=== PATIENT | male | born 1975 | race Caucasian/White ===

== ENCOUNTER 2024-02-28 23:31 | Emergency (ER) | payer OTHER, SELFPAY ==
[2024-02-28 23:31] VITALS: BMI 40.1
[2024-02-28 23:39] VITALS: BP 144/79; PULSE 106; RESP 20; TEMP 38.6; O2SAT 95
--- NOTE | 2024-02-28 23:43 | XR_ITS ---
Examination: CT abdomen with intravenous contrast CT pelvis with intravenous contrast 2-D coronal reconstructions 2-D sagittal reconstructions Date and time of exam:February 29, 2024 0131 hrs. Indications: Right upper abdominal pain nausea and chills fever beginning 5 days ago. CTDI: vol (mGy) 18.9 DLP: (mGycm) 1327 Technique: Multiple axial sections of the abdomen and pelvis have been obtained. 64 slice high-resolution scanner used. 3 mm axial sections have been obtained, post intravenous injection 60 cc [id number] 2-D sagittal, coronal reconstructions obtained. Low dose protocols were performed. One or more of the following dose reduction techniques were used; automated exposure control, adjustment of the mA and/or KV according to patient size, use of iterative reconstruction technique. Findings: Edema and/or pneumonia at the lung bases Liver calcifications Gallbladder wall appears mildly thickened Splenic calcifications No pancreatic or adrenal mass Mild bilateral renal parenchymal scar formation Aorta normal size Normal appendix No bowel obstruction No diverticulitis Marked thickening of the urinary bladder wall Cellulitis pattern in the anterior pelvic wall axial image 221 Impression: Pulmonary edema and/or pneumonia at the lung bases, recommend PA lateral chest follow-up Recommend hepatobiliary sonography follow-up to exclude gallbladder wall thickening Mild bilateral renal parenchymal scar formation Marked thickening of the urinary bladder wall, differential would include cystitis Cellulitis pattern, mild in the anterior pelvic wall
--- NOTE | 2024-02-28 23:44 | EDRME_ITS ---
Rapid Medical Screening Exam [facility] Arrival date/time: 02/28/24 23:31 48M with history of gastric bypass surgery presents to ED with 5 days of worsening RUQ/flank pain and N/V. Patient denies dysuria/hematuria and URI symptoms. Chief Complaint: Abdominal Pain Vital signs: Vital Signs Temperature 101.4 F H 02/28/24 23:39 Pulse Rate 106 H 02/28/24 23:39 Respiratory Rate 20 02/28/24 23:39 Blood Pressure 144/79 H 02/28/24 23:39 Pulse Oximetry (%) 95 02/28/24 23:39 Oxygen Delivery Method Room Air 02/28/24 23:39
--- NOTE | 2024-02-29 | XR_ITS ---
Examination: Abdomen sonogram, Limited Date and time of exam: February 29, 2024 1221 hours INDICATIONS: Right upper abdominal pain with fever beginning 10 days ago Technique: Real-time ortega scale transabdominal sonographic images of the upper abdomen obtained. Findings: Small gallstones Gallbladder wall 0.4 cm Common bile duct 0.3 cm Pancreatic head 3.0 cm Liver 16.9 cm fatty infiltration no focal liver lesions Normal hepatopedal portal venous flow Patent IVC IMPRESSION: Cholelithiasis, mild gallbladder wall thickening, consider HIDA scan follow-up or MRCP as clinically warranted
[2024-02-29 00:17] LABS: Lactate (Lactic Acid) 1.4 mMol/L (0.4-2.0)
[2024-02-29 00:23] LABS: Collection Type, Urine Clean Catch; Squamous Epithelial Cell,Urine 0 /hpf (0-5)
[2024-02-29 00:29] VITALS: TEMP 38.6
[2024-02-29] MEDS: SODIUM CHLORIDE 0.9% 1000 ML 1,000 ML 999 ML IV (00:29)
[2024-02-29] MEDS: ACETAMINOPHEN 500 MG TABLET 1000 MG PO (00:29)
[2024-02-29] MEDS: ONDANSETRON ODT 4 MG TABRAP PO (00:30)
[2024-02-29 00:34] LABS: Bilirubin,Urine Negative (Negative); Blood,Urine Negative (Negative); Clarity,Urine Clear (Clear/Hazy); Color,Urine Yellow (Lt Yel-Yel); Culture Indicated,Urine Not Indicated; Glucose, Urine Negative (Negative); Ketones,Urine Trace (Negative); Leukocyte Esterase,Urine Negative (Negative); Nitrite,Urine Negative (Negative); PH,Urine 5.5 (5.0-7.0); Protein,Urine Trace (Neg - Trace); RBC,Urine 3 /hpf (0-3); Specific Gravity,Urine 1.034 (1.001-1.035); WBC,Urine < 1 /hpf (0-5)
[2024-02-29 00:47] LABS: Alanine Aminotransferase 22 U/L (10-49); Albumin, Serum 4.6 gm/dL (3.5-5.0); Albumin/Globulin Ratio 1.8 (1.2-2.2); Alkaline Phosphatase 96 U/L (46-116); Anion Gap 7 (7-16); Aspartate Amino Transferase 24 U/L (0-34); BUN/Creatinine Ratio 22 Ratio (12-20); Basophils # (Auto) 0.2 Thou/mm3 (0.0-0.2); Basophils % (Auto) 1 % (0-2.5); Bilirubin,Total 0.5 mg/dL (0.3-1.2); Blood Urea Nitrogen 22 mg/dL (9-23); Calcium 9.5 mg/dL (8.3-10.6); Calcium (Corrected) 9.5 mg/dL (8.5-10.1); Carbon Dioxide 24.5 mMol/L (20.0-31.0); Chloride 107 mMol/L (98-107); Eosinophils # (Auto) 0.8 Thou/mm3 (0.0-0.5); Eosinophils % (Auto) 5 % (0-10); Estimated Creatinine Clearance 119.6 mL/min (>60); Globulin 2.5 gm/dL (2.3-3.5); Glucose 107 mg/dL (74-106); Hematocrit 39.9 % (41.0-53.0); Hemoglobin 13.4 g/dL (13.5-16.0); Immature Granulocytes % (Auto) 0 % (0-0); Immature Granulocytes Auto 0.05 Thou/mm3 (0.00-0.00); Lipase 43 U/L (12-53); Lymphocytes # (Auto) 1.6 Thou/mm3 (1.0-4.8); Lymphocytes % (Auto) 11 % (10-50); Mean Corpuscular HGB Conc 33.6 g/dl (31.0-37.0); Mean Corpuscular Hemoglobin 28.9 pg (25.0-35.0); Mean Corpuscular Volume 86 fL (80-100); Monocytes # (Auto) 1.4 Thou/mm3 (0.0-0.8); Monocytes % (Auto) 9 % (0-12); Neutrophils # (Auto) 10.8 Thou/mm3 (1.8-7.7); Neutrophils % (Auto) 73 % (37-80); Nucleated Red Blood Cell % 0 /100 WBC (0); Osmolality,Calculated 278 (275-295); Platelet Count 270 Thou/mm3 (140-440); Potassium 3.9 mMol/L (3.4-5.1); Procalcitonin 0.09 ng/ml (0.0-0.49); RDW Standard Deviation 42.8 fL (35.1-43.9); Red Blood Count 4.64 Miln/mm3 (4.50-5.90); Sodium 138 mMol/L (136-145); Total Protein 7.1 gm/dL (5.7-8.2); White Blood Count 14.8 Thou/mm3 (3.8-10.6); eGFR > 60 See Note
[2024-02-29 01:21] VITALS: BP 116/82; PULSE 88; RESP 18; TEMP 37.8; O2SAT 96
--- NOTE | 2024-02-29 02:14 | PRELIM_ITS ---
Right upper quadrant abdominal ultrasound with Limited Doppler. February 29, 2024 at 0021 hours Clini hue history: RUQ pain off and on with fever x10 days. History of gastric bypass surgery in 2015. No p rior study is available for comparison. Findings:The evaluation is limited due to overlying bowel gas and breathing during the study. The liver is enlarged, measuring 16.9 cm and demonstrates increase i n echogenicity. No intrahepatic biliary ductal dilatation. The main portal vein is patent and demonst rates hepatopetal flow. Hepatic veins are patent. Multiple small calculi are noted within the gallbl adder with gallbladder wall thickening, measuring 3.8 mm. No evidence of pericholecystic fluid. Sonog raphic Rizo sign is negative. Please correlate with any pain medication. The common bile duct is no rmal in caliber at 3-4 mm. The pancreas is not visualized, due to obscured by bowel gas. The abdomin al aorta and inferior vena cava are unremarkable to the extent visualized. Impression:Limited evalua tion as described. Cholelithiasis with mild gallbladder wall thickening, in the appropriate clinical setting, the possibility of acute cholecystitis cannot be excluded. Suggest follow-up with HIDA scan, if clinically indicated. Hepatomegaly with fatty infiltration of the liver. Report Electronically Si gned By: Amilcar Davila 02/29/2024 2:13:35 AM [EST]
[2024-02-29 02:20] VITALS: TEMP 37.3
[2024-02-29 02:20] LABS: Amphetamine/Methamp Scrn,U Negative (Negative); Barbiturate Screen,Urine Negative (Negative); Benzodiazepines Screen,Urine Negative (Negative); Benzoylecgonine Screen, Ur Negative (Negative); Fentanyl Screen,Urine Negative (Negative); Opiate Screen,Urine Negative (Negative); THC Screen,Urine Negative (Negative)
--- NOTE | 2024-02-29 03:27 | PRELIM_ITS ---
CT scan of the abdomen and pelvis with intravenous contrast (axial sections with sagittal and coronal reformats): February 29, 2024 at 0131 hoursClinical History: Right upper quadrant/flank pain.Correla donald with the prior ultrasound study dated February 29, 2024.Findings:Possible interstitial edema at t he lung bases.Calcific densities are seen in the liver and spleen, likely representing old calcified granulomas. The gallbladder, pancreas, kidneys and adrenals are unremarkable.Fluid filled mildly prom inent proximal small bowel loops. Gastric bypass surgery changes are noted. The appendix is within no rmal limits. The urinary bladder is not well distended with apparent wall thickening. 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 Im pression:Mild ileus.Possible cystitis.Possible interstitial edema at the lung bases.Other findings as described above. Report Electronically Signed By: Amilcar Davila 02/29/2024 3:25:32 AM [EST]
--- NOTE | 2024-02-29 03:53 | PD.EDABDPN ---
ED Abdominal Pain RME/HPI General Chief Complaint: Abdominal Pain Stated complaint: RUQ PAIN, NAUSEA, CHILLS X 5DAYS Arrival date/time: 02/28/24 23:31 RME / HPI RME / HPI narrative: 02/28/24 23:31 48M with history of gastric bypass surgery presents to ED with 5 days of worsening RUQ/flank pain and N/V. Patient denies dysuria/hematuria and URI symptoms. ----- Dr. Tobias's Main ED Evaluation: 48yo male presents to the ED for a chief complaint of worsening stabbing RUQ pain x 1 week. Patient states his pain is intermittent, but has been progressively getting worse. He states he started having a fever and chills around 1600 yesterday. He reports an associated headache and sweating. He denies any N/V/D, cough, chest pain, shortness of breath, dizziness or any other associated symptoms. Denies any history of similar symptoms. Denies any alcohol or illicit drug use, but does vape. PSH includes gastric bypass surgery in 2015. PCP: [facility] Home Medications ?Medication ?Instructions ?Recorded ?Confirmed Multivitamin with Minerals 1 tab PO QDAY #0 tabs 06/14/16 (Multiple Vitamin) calcium carbonate (Oyster Shell 1 tab PO QDAY ##0 06/14/16 Calcium) cholecalciferol (vitamin D3) 125 5,000 u PO QDAY ##0 06/14/16 mcg (5,000 unit) tablet (Vitamin D3) Previous Rx's ?Medication ?Instructions ?Recorded Hydrocodone/Acetaminophen * (NORCO 1 tab PO Q6H PRN PAIN #30 tabs 07/20/16 7.5/325 *) docusate sodium 100 mg capsule 100 mg PO BID #40 caps 07/20/16 (Colace) acetaminophen 650 mg 650 mg PO Q8H PRN fever or pain 03/12/18 tablet,extended release #30 tabs ciprofloxacin HCl 500 mg tablet 500 mg PO Q12H #20 tabs 03/12/18 (Cipro) acetaminophen 500 mg capsule 1,000 mg (2 x 500 mg) PO Q6H PRN 02/29/24 fever or pain #30 caps ciprofloxacin HCl 500 mg tablet 500 mg PO Q12H #14 tabs 02/29/24 (Cipro) metronidazole 500 mg tablet 500 mg PO TID #21 tabs 02/29/24 Allergies Allergy/AdvReac Type Severity Reaction Status Date / Time aspirin Allergy Severe Nausea/Vomi Verified 09/30/21 20:05 tiing NSAIDS (Non-Steroidal Allergy Severe Nausea/Vomi Verified 09/30/21 20:05 Anti-Inflamma tiing Review of Systems Review of Systems Systems Reviewed: All systems reviewed, normal except as documented Narrative Review of Systems: Gen: + fever, + chills, no weight loss, + headache EYES: No discharge, no visual changes, no pain HEENT: No ear pain, no congestion, no sore throat PULM: No shortness of breath, no cough, no congestion CV: No chest pain, no dyspnea on exertion, no palpitations GI: No nausea, no vomiting, no diarrhea, + pain, no constipation : No frequency, no urgency, no dysuria Musc/skel: No joint pain, no back pain Skin: No rash. Warm and dry. Psyc: No hallucinations, no depression Heme/Lymph: No easy bleeding or bruising tendencies Neuro: No weakness, + headache Past Medical History Past Medical History CARDIAC: Negative Congestive Heart Failure RESPIRATORY: Negative Chronic Obstructive Pulmonary Disease (COPD) or Asthma GENITOURINARY: Negative Renal Disease ENDOCRINE: Negative Diabetes Mellitus Type 1 or Diabetes Mellitus Type 2 HEMATOLOGIC: Negative Sickle Cell Disease Social History SMOKING STATUS: Current some day smoker ED Exam Narrative Physical exam: GEN. APPEARANCE: Patient is alert awake oriented x3 under no distress, laying down comfortably at 30-45?; does not look ill/ toxic. Patient has good eye contact. Patient is cooperative. VITALS: All vitals were reviewed and the pulse ox is 96% on room air, which is normal according to my interpretation. HEENT: Normocephalic, atraumatic and nontender. Pupils are equal and reactive to light and accommodation. Oral mucosa are moist. NECK: Supple, nontender, no meningismus, no JVD. CHEST: Nontender on palpation, no deformity and no crepitus. CARDIOVASCULAR: Heart regular rhythm no murmur or gallop rub or extra beats; not tachycardic. LUNGS: Clear to auscultation bilaterally with symmetrical chest rise. No laboring tachypnea or wheezing. No intercostal subcostal retraction. No rales and no rhonchi. ABDOMEN: Soft, flat, nontender at all, no guarding or rebound tenderness. There are no abnormal masses palpated. No pulsatile masses or bruits. Active and normal bowel sounds. GENITALIA: Not examined. RECTAL EXAM: Not done. EXTREMITIES: Nontender. No edema. No cyanosis. Patient is able to move all 4 extremities well. SKIN: Warm and dry, no rashes noted. MUSCULOSKELETAL: No lumbar or midline bony tenderness. There is no CVA tenderness. No paraspinal muscle spasm or tenderness. NEURO: Cranial nerves II through XII grossly intact. There is no focalization. GCS is 15. PSYCHIATRIC: Patient is in normal mood and affect, cooperative. LYMPHATICS: No major lymphadenopathy noted. Course Course Course Narrative: 2243: Sepsis alert initiated. Orders made at this time are congruent with ED Adult Sepsis Order List. Re-evaluation is to be completed. 0029: NS IVF started. 0400: Sepsis reassessment performed consisting of lab review, vitals, physical exam including auscultation of heart, lungs, and visual evaluation of capillary refills, mucosal membranes and extremities. Quality Measures none Orders Category Date Time Status CT Screening NOW Care 02/28/24 23:43 Active Insert IV NOW Care 02/28/24 23:[address] abdomen pelvis w con Stat Exams 02/28/24 23:43 Taken US gall bladder Stat Exams 02/29/24 00:00 Taken Blood Culture (Lab) Stat Lab 02/28/24 23:49 Received CBC Stat Lab 02/28/24 23:54 Completed CMP [Comprehensive Metabolic Panel] Stat Lab 02/28/24 23:54 Completed Drug Screen,Urine Stat Lab 02/29/24 00:00 Completed Lactate (Lactic Acid) Stat Lab 02/28/24 23:54 Completed Lipase Stat Lab 02/28/24 23:54 Completed Procalcitonin Stat Lab 02/28/24 23:54 Completed Urinalysis, C/S if Indicated Stat Lab 02/29/24 00:00 Completed Acetaminophen Tab [Tylenol ES Tab] Med 02/28/24 23:43 Discontinued 1,000 mg PO X1 ONE Ondansetron Odt [Zofran Odt] Med 02/28/24 23:45 Discontinued 4 mg PO X1 ONE Piper/Tazo 3.375 gm [Zosyn] Med 02/29/24 04:13 Active 3.375 gm in 50 ml IV X1 Sodium Chloride 0.9% 1000 ml [Ns] 1,000 ml Med 02/28/24 23:43 Discontinued IV 999 mls/hr Vital Signs Vital signs: Vital Signs Temperature 101.4 F H 02/28/24 23:39 Pulse Rate 106 H 02/28/24 23:39 Respiratory Rate 20 02/28/24 23:39 Blood Pressure 144/79 H 02/28/24 23:39 Pulse Oximetry (%) 95 02/28/24 23:39 Oxygen Delivery Method Room Air 02/28/24 23:39 Abdominal Pain MDM MDM Narrative MDM Narrative:: Scribe Attestation: 02/29/24 - Dina Singh am scribing for and in the presence of Dr. Tobias. Patient comes in accompanied with his complaining of right upper quadrant pain for the last 10 days with radiation to his back on and off with stabbing pains that last few minutes and then go away and then come back again. Yesterday at 4 PM he started breaking up in a fever but he never checked his temperature at home. Here, upon presentation, his temperature was 101.4 orally. Patient states that he has no pain right now and as a matter fact when I palpate his abdomen he has no tenderness whatsoever. There is no guarding or rebound tenderness. There are no abnormal masses palpated. He does point to his Rizo's point as the most tender area. Patient denies any nausea vomiting or diarrhea or hematemesis or melena. He denies any chest pain coughing shortness of breath and he denies UTI symptoms. He did have a headache but no dizziness no fall or injuries. He never had this kind of problem before. His past surgical history is positive for gastric bypass in 2014. His white count came back elevated at 15 but his differential is normal and his H&H is normal at 13.4 and 40 would not platelet count normal at 270. His urinalysis is negative and his chemistries are all normal including his liver enzymes. His ultrasound confirms that he has cholelithiasis with mild gallbladder wall thickening which brings up the possibility of acute cholecystitis according to the telemetry radiologist. His CAT scan of the abdomen and pelvis with IV contrast is unremarkable. Since patient has no pain right now and no tenderness on palpation as well as no nausea vomiting. We will give him Zosyn 3.375 g IV here and will discharge him home on Cipro and Flagyl. I discussed this case with Dr. Pena, our surgeon on-call at 4:15 AM and he concurs with this disposition. I told the patient to follow-up with Dr. Pena but it seems like that he prefers to go to his surgeon who operated him in 2015. Provider Notation: Although this document has been carefully reviewed, there may still be some phonetic and other typographical errors. These errors are purely grammatical due to imperfections in the software program and should not be construed in any way to compromise the substance of the patient's medical care during this visit. Patient data External records reviewed:: [facility] previous records (Per chart review, patient was seen here on 09/30/21 for a puncture of the foot.) Clinical information provided by:: patient Social determinants that could affect healthcare access:: none Patient has the following chronic illnesses:: none How is presenting disease/condition affected by chronic disease/condition?: no chronic disease Evaluation data The following diagnostics were reviewed and interpreted by me:: lab results and radiology exam(s) Lab and/or radiology exams considered but not ordered:: none Interpretation Summary: See above under MDM narrative. ----- [facility] Preliminary Report Draft Patient: ROBETR BROWN. Record#: [id number] Birthdate: 1975 Age/Sex: 48 / M Location: [facility] Attending Dr: Ordering Physician: Date of Service: Procedure(s): Accession Number(s): cc: ~ CT scan of the abdomen and pelvis with intravenous contrast (axial sections with sagittal and coronal reformats): February 29, 2024 at 0131 hours Clinical History: Right upper quadrant/flank pain. Correlated with the prior ultrasound study dated February 29, 2024. Findings: Possible interstitial edema at the lung bases. Calcific densities are seen in the liver and spleen, likely representing old calcified granulomas. The gallbladder, pancreas, kidneys and adrenals are unremarkable. Fluid filled mildly prominent proximal small bowel loops. Gastric bypass surgery changes are noted. The appendix is within normal limits. The urinary bladder is not well distended with apparent wall thickening. There is no free fluid or free air.There is no adenopathy. 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 Impression: Mild ileus. Possible cystitis. Possible interstitial edema at the lung bases. Other findings as described above. Report Electronically Signed By: Amilcar Davila 02/29/2024 3:25:32 AM [EST] [facility] Preliminary Report Draft Patient: ROBERT BROWN Record#: [id number] Birthdate: 1975 Age/Sex: 48 / M [facility] Att[facility] Dr: Ordering Physician: Date of Service: Procedure(s): Accession Number(s): cc: ~ Right upper quadrant abdominal ultrasound with Limited Doppler. February 29, 2024 at 0021 hours Clinical history: RUQ pain off and on with fever x10 days. History of gastric bypass surgery in 2014. No prior study is available for comparison. Findings: The evaluation is limited due to overlying bowel gas and breathing during the study. The liver is enlarged, measuring 16.9 cm and demonstrates increase in echogenicity. No intrahepatic biliary ductal dilatation. The main portal vein is patent and demonstrates hepatopetal flow. Hepatic veins are patent. Multiple small calculi are noted within the gallbladder with gallbladder wall thickening, measuring 3.8 mm. No evidence of pericholecystic fluid. Sonographic Rizo sign is negative. Please correlate with any pain medication. The common bile duct is normal in caliber at 3-4 mm. The pancreas is not visualized, due to obscured by bowel gas. The abdominal aorta and inferior vena cava are unremarkable to the extent visualized. Impression: Limited evaluation as described. Cholelithiasis with mild gallbladder wall thickening, in the appropriate clinical setting, the possibility of acute cholecystitis cannot be excluded. Suggest follow-up with HIDA scan, if clinically indicated. Hepatomegaly with fatty infiltration of the liver. Report Electronically Signed By: Amilcar Davila 02/29/2024 2:13:35 AM [EST] Medications / Prescriptions Medications or Prescriptions considered but not ordered:: none Medication administrations:: Medication Administration History Piperacillin/Tazobactam/Dextrose (Zosyn) 3.375 gm in 50 mls @ 100 mls/hr IV X1 ONE Stop: 02/29/24 04:42 Discontinued Medications Acetaminophen (Acetaminophen 500 Mg Tablet) 1,000 mg PO X1 ONE Stop: 02/28/24 23:44 Last Admin: 02/29/24 00:29 Dose: 1,000 mg Documented By: ARIAN Sodium Chloride (Ns) 1,000 mls @ 999 mls/hr IV .Q1H1M ONE Stop: 02/29/24 00:43 Last Admin: 02/29/24 00:29 Dose: 999 mls/hr Documented By: ARIAN Ondansetron HCl (Ondansetron Odt 4 Mg Tabrap) 4 mg PO X1 ONE; Protocol Stop: 02/28/24 23:46 Last Admin: 02/29/24 00:30 Dose: 4 mg Documented By: ARIAN see above Consultations Consultation(s) initiated? (list below): Yes Diagnosis Differential diagnosis abdominal pain: acute appendicitis and other (biliary colic, cholecystitis, ascending cholangitis, pneumonia, pyelonephritis) Most likely diagnosis given after review of the tests above:: see below Admission Indicated Admission indicated?: not indicated Admission Request Was there a request for admission?: No Disposition Plan Disposition Plan: Discharge Discharge Attestation Discharge Attestation: The patient and all family members were given an opportunity to ask questions and understood the discharge instructions. Discharge instructions specifically effects, indications for sooner follow up or return to the emergency department, and the expected course of current diagnosis. Patient condition: Stable Discharge Plan Plan Patient Disposition: HOME (Self Care) Prescriptions/Referrals Prescriptions/Med Rec: New metronidazole 500 mg tablet 500 mg PO TID Qty: 21 0RF ciprofloxacin HCl [Cipro] 500 mg tablet 500 mg PO Q12H Qty: 14 0RF Rx Instructions: administer dose at least 2 hrs before/6 hrs after dairy products, calcium, zinc, and/or iron-containing products acetaminophen 500 mg capsule 1,000 mg PO Q6H PRN (Reason: fever or pain) Qty: 30 0RF No Action ciprofloxacin HCl [Cipro] 500 mg tablet 500 mg PO Q12H Qty: 20 0RF Rx Instructions: administer dose 2 hrs before/6 hrs after dairy products/calcium/zinc/iron-containing products acetaminophen 650 mg tablet extended release 650 mg PO Q8H PRN (Reason: fever or pain) Qty: 30 0RF Rx Instructions: swallow whole; do not crush, chew, break, dissolve, cut, or open calcium carbonate [Oyster Shell Calcium] 1 TAB tablet 1 tab PO QDAY Qty: 0 cholecalciferol (vitamin D3) [Vitamin D3] 5,000 UNIT tablet 5,000 u PO QDAY Qty: 0 Multivitamin with Minerals (Multiple Vitamin) 1 EACH tablet 1 tab PO QDAY Qty: 0 docusate sodium [Colace] 100 MG capsule 100 mg PO BID Qty: 40 0RF Hydrocodone/Acetaminophen * (NORCO 7.5/325 *) 1 TAB tablet 1 tab PO Q6H PRN (Reason: PAIN) Qty: 30 0RF Referrals: Samm Herman MD [Primary Care Provider] - 03/03/24 10:00 am Problem List Clinical Impression: Abdominal pain, Biliary colic, Calculus of bile duct with cholecystitis Patient/Caregiver Discharge Instructions Education Materials: ED Cholecystitis, Confirmed Additional Instructions: Avoid eating any eggs, pork or any fried foods. Drink lots of clear liquids. Take medications as prescribed and be sure to finish the antibiotics. Follow-up with your doctor on Sunday or with Dr. Pena, our surgeon, or with your surgeon who did your gastric bypass. Print Language: Hebrew Stand Alone Forms: Chelsy Award Info., Patient Portal Info Letter
[2024-02-29 04:12] VITALS: BP 108/22; PULSE 84; RESP 17; TEMP 37.7; O2SAT 96
[2024-02-29] MEDS: PIPER/TAZO 3.375 GM 3.375 GM/50 ML BAG IV (04:37)
[2024-02-29 05:21] VITALS: BP 130/84; PULSE 83; RESP 18; TEMP 36.7; O2SAT 95
== END 2024-02-29 05:21 | disposition home or self-care (01) ==
PROVIDERS: Physician Assistant; Emergency Provider Emergency Medicine; PCP Internal Medicine
DX: K80.40 Calculus of bile duct with cholecystitis, unspecified, without obstruction (principal); K76.0 Fatty (change of) liver, not elsewhere classified; K56.7 Ileus, unspecified
CPT/HCPCS: 36415; 74177; 76705; 80053; 80307; 81001; 83605; 83690; 84145; 85025; 87040; 96361; 96365; 99285; A4649; J2543; J7030; Q0162; Q9967; A9270